=== PATIENT | female | born 1995 | race African-American/Black ===

== ENCOUNTER 2021-03-28 03:56 | Emergency (ER) | payer BC, SELFPAY ==
[2021-03-28 04:01] VITALS: BP 128/77; PULSE 76; RESP 18; TEMP 36.6; O2SAT 100
--- NOTE | 2021-03-28 04:04 | ED.GENADULT ---
HPI - General Adult General Chief complaint: Abdominal Pain Stated complaint: Abdominal pain Time Seen by Provider: 03/28/21 03:59 History of Present Illness HPI narrative: Patient is a 25-year-old female who presents ER with right-sided abdominal pain. Sudden onset while asleep. Lasted for 7 minutes. Located in the right lower quadrant. No radiation. Worse with bending and trying to lift right leg. Patient reports this occurs intermittently. No urinary symptoms. Normal bowel movement today. No nausea or vomiting. No additional concerns. States she feels like this is usually pain that she has accompanied by her fibroids when she is on her period. She is currently menstruating. Related Data Allergies Allergy/AdvReac Type Severity Reaction Status Date / Time No Known Allergies Allergy Verified 03/28/21 04:03 Review of Systems Review of Systems: All systems reviewed & are unremarkable except as noted in HPI and below Constitutional: Constitutional: Denies chills and Denies fever(s) Gastrointestinal: Gastrointestinal: Reports abdominal pain, Denies constipation, Denies diarrhea, Denies nausea and Denies vomiting Genitourinary: Genitourinary: Denies hematuria, Denies nocturia, Denies dysuria and Denies vaginal discharge Musculoskeletal: Musculoskeletal: Denies back pain and Denies muscle cramps PMFSH Past Medical History Medical History (Updated 03/28/21 @ 04:58 by Jose Pineda MD) Fibroids Surgical History Surgical History (Updated 03/28/21 @ 04:05 by Jose Pineda MD) No history of previous surgery Social History Social History (Updated 03/28/21 @ 04:05 by Jose Pineda MD) Smoking status: Never smoker Exam Narrative: Exam Narrative: GENERAL: Well-appearing, well-nourished, and in no acute distress. HEAD: Normocephalic, atraumatic. ENT: Mucous membranes moist. CHEST: Clear to auscultation. No respiratory distress. HEART: Regular rate and rhythm. Normal peripheral pulses. ABDOMEN: Soft, nontender, nondistended EXTREMITIES: Normal range of motion. No edema. SKIN: Warm, dry, no rash. NEURO: Alert and oriented x3. Course Vital Signs Vital signs: Vital Signs Temperature 97.9 F 03/28/21 04:01 Pulse Rate 76 03/28/21 04:01 Respiratory Rate 18 03/28/21 04:01 Blood Pressure 128/77 03/28/21 04:01 Pulse Oximetry 100 03/28/21 04:01 Temperature 97.9 F 03/28/21 04:01 Pulse Rate 76 03/28/21 04:01 Respiratory Rate 18 03/28/21 04:01 Blood Pressure 128/77 03/28/21 04:01 Pulse Oximetry 100 03/28/21 04:01 Medical Decision Making Vital Signs Vital Signs: Vital Signs Temperature 97.9 F 03/28/21 04:01 Pulse Rate 76 03/28/21 04:01 Respiratory Rate 18 03/28/21 04:01 Blood Pressure 128/77 03/28/21 04:01 Pulse Oximetry 100 03/28/21 04:01 Temperature 97.9 F 03/28/21 04:01 Pulse Rate 76 03/28/21 04:01 Respiratory Rate 18 03/28/21 04:01 Blood Pressure 128/77 03/28/21 04:01 Pulse Oximetry 100 03/28/21 04:01 Lab Data Result diagrams: 03/28/21 04:13 03/28/21 04:12 Labs: Lab Results 03/28/21 03/28/21 03/28/21 Range/Units 04:12 04:13 04:24 WBC 6.2 (4.5-10.0) K/mm3 RBC 4.22 (4.2-5.4) M/mm3 Hgb 13.0 (12.0-15.0) g/dL Hct 38.5 (37.0-47.0) % MCV 91.2 (80-100) fl MCH 30.8 (26-34) pg MCHC 33.8 (32-36) g/dl RDW 12.7 (11.5-14.5) % Plt Count 169 (150-375) k/mm3 MPV 11.2 H (7.4-10.4) fl Immature Gran % (Auto) 0.3 (0-0.5) % Neut % (Auto) 48.1 (45.5-73.1) % Lymph % (Auto) 41.1 (18.3-44.2) % Emery % (Auto) 8.5 (2.6-8.5) % Eos % (Auto) 1.4 (0-4.4) % Baso % (Auto) 0.6 (0.2-1.2) % Lymph # (Auto) 2.56 (0.9-3.2) K/mm3 Emery # (Auto) 0.5 (0.1-0.6) K/mm3 Eos # (Auto) 0.1 (0-0.3) K/mm3 Baso # (Auto) 0.0 (0.0-0.1) K/mm3 Abs Immat Gran (auto) 0.02 (0.00-0.031) K/mm3 Absolute Neuts (auto) 3.0
--- NOTE | 2021-03-28 04:05 | PC.NURSE ---
pt here from home c/o abd pain to RLQ cramping in nature that she reports is similar to past episodes. has copper iud x 7 years. pt not currently experiencing pain. a/o x 4. resps even/nonlabored. ambulatory c steady gait. urine sample requested and pt reports unable to provide sample at this time.
[2021-03-28 04:20] LABS: Basophils Percent Auto 0.6 % (0.2-1.2); Eosinophils Absolute Auto 0.1 K/mm3 (0-0.3); Eosinophils Percent Auto 1.4 % (0-4.4); Hematocrit 38.5 % (37.0-47.0); Immature Granulocyte Absolute 0.02 K/mm3 (0.00-0.031); Immature Granulocyte Percent A 0.3 % (0-0.5); Lymphocytes Absolute Auto 2.56 K/mm3 (0.9-3.2); Lymphocytes Percent Auto 41.1 % (18.3-44.2); Mean Corpuscular HGB Conc 33.8 g/dl (32-36); Mean Corpuscular Hemoglobin 30.8 pg (26-34); Mean Corpuscular Volume 91.2 fl (80-100); Mean Platelet Volume 11.2 fl (7.4-10.4); Monocytes Absolute Auto 0.5 K/mm3 (0.1-0.6); Monocytes Percent Auto 8.5 % (2.6-8.5); Neutrophils Percent Auto 48.1 % (45.5-73.1); Platelet Count Result 169 k/mm3 (150-375); Red Blood Count 4.22 M/mm3 (4.2-5.4); Red Cell Distribution Width 12.7 % (11.5-14.5); White Blood Count 6.2 K/mm3 (4.5-10.0)
[2021-03-28 04:29] LABS: Anion Gap 9 mmol/L (8-16); Blood Urea Nitrogen 12 mg/dL (7-17); Calcium 9.2 mg/dL (8.4-10.2); Carbon Dioxide 23 mmol/L (22-30); Chloride 108 mmol/L (98-107); Estimated CRCL calculation 101 ml/min; Estimated Glomerular Filt Rate > 60; Glucose 90 mg/dL (65-105); Sodium 140 mmol/L (137-145)
[2021-03-28 04:42] LABS: Add Urine Microscopic? YES; Appearance Urine Cloudy (Clear); Bacteria Urine Trace /hpf; Bilirubin Urine Negative (Negative); Blood Urine 3+ (Negative); Color Urine Amber (Yellow); Glucose Urine UA Negative (Negative); Ketones Urine Trace mg/dL (Negative); Leukocyte Esterase Ur 1+ LEU/UL (Negative); Mucus Urine Few /lpf; Nitrate Urine Negative (Negative); Protein Urine 2+ mg/dL (Negative); RBC Urine 21-50 /hpf (0-2); Specific Grav Ur 1.024 (1.001-1.035); Squamous Epithelial Cell Urine Many /hpf (Few); Urobilinogen Urine Negative mg/dL (<2.0); WBC Urine 21-30 /hpf
[2021-03-28 05:02] VITALS: BP 107/68
[2021-03-28 05:12] VITALS: PULSE 64; RESP 20; O2SAT 99
== END 2021-03-28 05:14 | disposition home or self-care (01) ==
LOC: ANHED 05:07
PROVIDERS: Emergency Provider Emergency Medicine
DX: N39.0 Urinary tract infection, site not specified (principal)
CPT/HCPCS: 36415; 80048; 81001; 81025; 85025; 87086; 87088; 99283

== ENCOUNTER 2021-09-13 15:30 | Emergency (ER) | payer BC, SELFPAY ==
[2021-09-13 15:40] VITALS: BP 117/73; PULSE 60; RESP 16; TEMP 36.9; O2SAT 100
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
== END 2021-09-13 17:00 | disposition home or self-care (01) ==
PROVIDERS: Emergency Provider Nurse Practitioner Family
DX: T52.8X1A Toxic effect of other organic solvents, accidental (unintentional), initial encounter (principal); T24.512A Corrosion of first degree of left thigh, initial encounter
CPT/HCPCS: 99213; G0463